=== PATIENT | male | born 1945 | race Caucasian/White ===

== ENCOUNTER 2021-03-27 14:10 | Emergency (ER) | payer MEDICARE, OTHER, SELFPAY ==
--- NOTE | ~2021-03-27 | XR_ITS ---
EXAMINATION: XR shoulder LT min 2V DATE: 03/27/2021 15:05 INDICATION: Left shoulder pain. TECHNIQUE: 4 views of left shoulder were obtained. COMPARISON: None. FINDINGS: There is superior subluxation of humeral head with narrowing of the subacromial space and r emodeling of the undersurface of the acromion, consistent with chronic rotator cuff tear with cuff ar thropathy. No acute fracture. There is mild osteoarthritis of glenohumeral joint. There is widening o f acromioclavicular joint and shortening of the clavicle, which may be from old surgery or old trauma . A calcified left lung nodule is consistent with old granulomatous disease. IMPRESSION: 1. Mild left glenohumeral joint osteoarthritis. 2. Chronic left rotator cuff tear with cuff arthropathy. Reviewed, dictated and finalized at location A.
[2021-03-27 14:25] VITALS: BP 151/47; PULSE 56; RESP 20; TEMP 36.5; O2SAT 100
--- NOTE | 2021-03-27 15:34 | ED.UPPEXIN ---
HPI - Extremity Injury (Upper) General Chief Complaint: Extremity Problem,Nontraumatic Stated Complaint: Lt Shoulder Pain Source: patient and RN notes reviewed Limitations: no limitations History of Present Illness HPI narrative: The patient, who has had multiple orthopedic procedures, presents with left shoulder discomfort. Patient states he has had bilateral shoulder surgeries; today he had the atraumatic onset of left shoulder pain while using hedge trimmers. It is worse with motion, better with rest, located the proximal humerus; no deformity, bleeding. Related Data Home Medications Medication Instructions Recorded Confirmed acetaminophen [Tylenol] 500 mg PO BID 03/27/21 03/27/21 allopurinol 300 mg PO DAILY 03/27/21 03/27/21 aspirin [Adult Aspirin EC Low 81 mg PO DAILY 03/27/21 03/27/21 Strength] atorvastatin 20 mg PO DAILY 03/27/21 03/27/21 olmesartan-hydrochlorothiazide 1 tablet PO DAILY 03/27/21 03/27/21 Allergies Allergy/AdvReac Type Severity Reaction Status Date / Time amlodipine AdvReac Intermediate Swelling Verified 03/27/21 14:43 cephalexin [From Keflex] AdvReac Intermediate Hives Verified 03/27/21 14:42 chlorhexidine AdvReac Intermediate Other Verified 03/27/21 14:44 doxycycline AdvReac Intermediate Nausea and Verified 03/27/21 14:44 Vomiting Penicillins AdvReac Intermediate Hives Verified 03/27/21 14:42 Review of Systems Review of Systems: General/Constitutional: No weight loss,fever Eyes: N0: Redness,discharge Ears/Nose/Throat: No: Epistaxis,ear discharge Respiratory: Denies: Hemoptysis Gastrointestinal: No Vomiting, Bleeding-rectal Skin: No Lumps, eruption Neurologic: No Focal Weakness,Sz Hematologic: Denies: Petechiae/Purpura Psychiatric: No: Suicida ideationl All Other Systems: Reviewed and Negative PMFSH Comments At time of signature, agree with nursing past medical, surgical, social and family history. There is no relevant family history pertinent to the presenting complaint Exam Narrative: General Appearance: Well appearing, Well nourished, No distress EYE: PERRLA, EOMI, Conjunctiva clear Ears: External ear normal, Auditory canal normal Nose: Normal nose, Nares clear Mouth/Throat: Normal appearing, Normal lips Neck: Supple Respiratory: Airway patent, No respiratory distress MS-shoulder: Nl strength (mostly intact, limited flexion/extension, IR/ER by pain), Tenderness ( proximal humerus, with mild decreased ROM), no swelling , unable to do provocative testing Skin: Warm, Dry, Normal color Neurological: A&O x3, Speech clear, CN II-XII intact Psychiatric: Normal mood, Normal affect Course Vital Signs Vital signs: Vital Signs Temperature 97.7 F 03/27/21 14:25 Pulse Rate 56 L 03/27/21 14:25 Respiratory Rate 20 03/27/21 14:25 Blood Pressure 151/47 H 03/27/21 14:25 Pulse Oximetry 100 03/27/21 14:25 Temperature 97.7 F 03/27/21 14:25 Pulse Rate 56 L 03/27/21 14:25 Respiratory Rate 20 03/27/21 14:25 Blood Pressure 151/47 H 03/27/21 14:25 Pulse Oximetry 100 03/27/21 14:25 Discharge Plan Discharge Clinical Impression: Shoulder strain Qualifiers: Encounter type: initial encounter Laterality: left Qualified Code(s): S46.912A - Strain of unspecified muscle, fascia and tendon at shoulder and upper arm level, left arm, initial encounter Osteoarthritis of shoulder Qualifiers: Osteoarthritis type: primary Laterality: left Qualified Code(s): M19.012 - Primary osteoarthritis, left shoulder Patient Disposition: Home, Self-Care Condition: Stable Instructions: Shoulder Sprain (ED) Additional Instructions: See your prior orthopedist in follow-up [with provided x-ray]; try PT exercises provided You may combine these with your OTC pain meds like Tylenol Prescriptions: New prednisone 20 mg tablet 60 mg PO DAILY Qty: 9 RF: 0 tramadol 50 mg tablet 50 - 75 mg PO BID PRN (Reason: pain) Qty: 30 RF: 0 No Action atorvas
== END 2021-03-27 15:40 | disposition home or self-care (01) ==
PROVIDERS: Emergency Provider Emergency Medicine
DX: S46.912A Strain of unspecified muscle, fascia and tendon at shoulder and upper arm level, left arm, initial encounter (principal); X50.3XXA Overexertion from repetitive movements, initial encounter; M19.012 Primary osteoarthritis, left shoulder; E78.00 Pure hypercholesterolemia, unspecified; I10 Essential (primary) hypertension; J98.6 Disorders of diaphragm
CPT/HCPCS: 73030; 99203; G0463